=== PATIENT | female | born 1955 | race Two or more races ===

== ENCOUNTER 2025-05-13 14:01 | Inpatient (IN) | payer MEDICARE, MEDICAID ==
[~2025-05-13] VITALS: Ht 152.4 cm; Wt 63.3 kg
[2025-05-13] MEDS: AMIODARONE BOLUS KIT 100 ML IV ONE (14:18)
--- NOTE | 2025-05-13 14:34 | ED.PDOC ---
HPI Comments This is a 70 year-old female, with a Hx of COPD and HTN, who presents to the ED via EMS with a chief complaint of chest tightness as of today. Per EMS, patient was at a local advanced cardiology clinic today where possible SVTs were observed during a routine check-up. Per EMS, patient was given 18mg Adenosine en route. Patients HR sustaining in the 140s. Patient has no further complaints at this time and otherwise denies chest pain, dizziness, headache, palpitations, N/V/D, or LOC. Chief Complaint: Palpitations Time Seen by MD: 14:19 Reviewed Notes: Nurses Notes, Medications, Allergies Allergies: Coded Allergies: NO KNOWN ALLERGIES (Unverified , 05/13/25) Information Source: Patient Mode of Arrival: EMS Severity: Moderate Timing: Hours Duration: Since onset Prehospital treatment: Pain Meds (18mg Adenosine ) Quality: Tightness Onset: At Rest, With Light Exertion, With Heavy Exertion Associated Signs and Symptoms: Other (chest tightness ) Past Medical History PAST MEDICAL HISTORY: COPD, DM, High Lipids, HTN Surgical History: Denies all surgeries SCALPER OPERATOR History: No Pertinent SCALPER OPERATOR History Family History Family History: Reviewed,noncontributory to illness, No family hx of Cancer, No family hx of DM, No family hx of Heart ava, No family hx of HTN, No family hx ofKidney ava, No family hx of Liver ava, No family hx of Lung ava, No family hx of Stroke Social History Smoker: Non-Smoker Alcohol: Denies ETOH Use Drugs: Denies Drug Use Lives In: Home Constitutional: denies: chills, diaphoresis, fatigue, fever, malaise, sweats, weakness, others EENTM: denies: blurred vision, double vision, ear bleeding, ear discharge, ear drainage, ear pain, ear ringing, eye pain, eye redness, hearing loss, mouth pain, mouth swelling, nasal discharge, nose bleeding, nose congestion, nose pain, photophobia, tearing, throat pain, throat swelling, voice changes, others Respiratory: denies: cough, hemoptysis, orthopnea, SOB at rest, shortness of breath, SOB with excertion, stridor, wheezing, others Cardiovascular: reports: others (chest tightness ); denies: chest pain, dizzy spells, diaphoresis, Dyspnea on exertion, edema, irregular heart beat, left arm pain, lightheadedness, palpitations, PND, syncope Gastrointestinal: denies: abdomen distended, abdominal pain, blood streaked bowels, constipated, diarrhea, dysphagia, difficulty swallowing, hematemesis, melena, nausea, poor appetite, poor fluid intake, rectal bleeding, rectal pain, vomiting, others Genitourinary: denies: abnormal vagina bleeding, burning, dyspareunia, dysuria, flank pain, frequency, hematuria, incontinence, pain, , vagina discharge, urgency, others Neurological: denies: dizziness, fainting, headache, left sided numbness, left sided weakness, numbness, paresthesia, pre-existing deficit, right sided numbness, right sided weakness, seizure, speech problems, tingling, tremors, weakness, others Musculoskeletal: denies: back pain, gout, joint pain, joint swelling, muscle pain, muscle stiffness, neck pain, others Integumetry: denies: bruises, change in color, change in hair/nails, dryness, laceration, lesions, lumps, rash, wounds, others Allergic/Immunocompromised: denies: Difficulty Healing, Frequent Infections, Hives, Itching, others Hematologic/Lymphatic: denies: anemia, blood clots, easy bleeding, easy bruising, swollen glands, others Endocrine: denies: excessive hunger, excessive sweating, excessive thirst, excessive urination, flushing, intolerance to cold, intolerance to heat, unexplained weight gain, unexplained weight loss, others Psychiatric: denies: anxiety, bipolar disorder, depression, hopeless, panic disorder, schizophrenia, sleepless, suicidal, others All Other Systems: Reviewed and Negative Physical Exam General Appearance: Moderate Distress HEENT: Normal ENT Inspection, Pharynx Normal, TMs Normal Neck: Full Range of Motion, Non-Tender, Normal, Normal Inspection Respiratory: Chest Non-Tender, Lungs Clear, No Accessory Muscle Use, No Respiratory Distress, Normal Breath Sounds Cardiovascular: No Edema, No JVD, No Murmur, No Gallop, Normal Peripheral Pulses, Tachycardia Breast Exam: Deferred Gastrointestinal: No Organomegaly, Non Tender, No Pulsatile Mass, Normal Bowel Sounds, Soft Genitalia: Deferred Pelvic: Deferred Rectal: Deferred Extremities: No calf tenderness, Other (Bilateral lower extremity rash chronic) Musculoskeletal : Apperance: Normal Neurologic: Alert, No Motor Deficits, No Sensory Deficits Cerebellar Function: NOT DONE Reflexes: NOT DONE Skin: Normal Color, Rash (Bilateral lower extremity) Lymphatic: No Adenopathy EKG EKG : Pulse Rate (adult): 148 [place]: Normal Block: None Hypertrophy: None ST: Normal Was a procedure done? Was a procedure done?: No CP Differential Dx Differential Diagnosis: A-fib, A-Flutter, Angina, Anxiety / Panic Attack, Atrial Dysrhythmia, Electrolyte Disorder, PSVT, Sinus Tachycardia Differential Diagnosis: CHF, HTN Essential Differential Diagnosis: Angina, Chest Wall Pain X-Ray, Labs, Meds, VS Vital Signs Date Time Temp Pulse Resp B/P (MAP) Pulse Ox O2 Delivery O2 Flow Rate FiO2 05/13/25 17:04 89 05/13/25 16:00 93 17 117/55 (75) 94 05/13/25 15:10 139 05/13/25 14:46 94 Nasal Cannula* 2 28 05/13/25 14:42 148 05/13/25 14:37 134 18 94 Nasal Cannula* 2 28 05/13/25 14:23 97.7 128 17 110/50 (70) 94 97.7 05/13/25 14:12 98.6 148 24 142/74 99 98.6 05/13/25 14:12 148 Lab Test 05/13/25 15:24 05/13/25 14:28 05/13/25 14:22 Range/Units Troponin I High Sensitivity 9 5 </=34 ng/L POC Glucose 142 H 70-106 mg/dl Current Medications Medications (Trade) Dose Ordered Sig/Ramirez Route Start Time Stop Time Status Last Admin Amiodarone HCl 100 ml @ 600 mls/hr ONCE ONCE IV 05/13/25 14:15 05/13/25 14:24 DC 05/13/25 14:18 Amiodarone HCL/ Dextrose 200 ml @ 33.33 mls/ hr ONCE ONCE IV 05/13/25 14:30 05/13/25 20:30 05/13/25 14:36 Patient alert. Came in because of rapid heart rate. EKG reviewed does show supraventricular tachycardia. Placed on oxygen. Cardiac marker within normal limits. Placed on amiodarone. Explained to the patient. Continue monitoring. Images Reviewed?: Images reviewed and evaluated by me Time of 1ST Reevaluation: 15:08 Reevaluation 1ST: Unchanged Patient Education/Counseling: Diagnosis, Treatment Family Education/Counseling: No Family Present SEPSIS Sepsis Screen Date sepsis recognized/suspect: May 13, 2025 Time Sepsis recognized/suspect: 1416 Recent Procedure: No On Antibiotic Therapy: No Respiratory Rate >20: No Heart Rate >90: Yes Temp<36 C (96.8 F) or >38.3 C: No SBP <90 or MAP <65 mmHG: No New Acute Mental Status Change: No Is the patient on CPAP, BIPAP,: No Physician Orders Electrocardigram (05/13/25 14:03) Electrocardigram (05/13/25 15:03) Electrocardigram (05/13/25 17:03) Troponin-I Hs (05/13/25 17:03) Amiodarone 360mg/200ml Premix (Nexterone (05/13/25 14:30) Amiodarone 360mg/200ml Premix (Nexterone (05/13/25 20:30) Vital Signs Date Time Temp Pulse Resp B/P (MAP) Pulse Ox O2 Delivery O2 Flow Rate FiO2 05/13/25 17:04 89 05/13/25 16:00 93 17 117/55 (75) 94 05/13/25 15:10 139 05/13/25 14:46 94 Nasal Cannula* 2 28 05/13/25 14:42 148 05/13/25 14:37 134 18 94 Nasal Cannula* 2 28 05/13/25 14:23 97.7 128 17 110/50 (70) 94 97.7 05/13/25 14:12 98.6 148 24 142/74 99 98.6 05/13/25 14:12 148 Medications Medications Dose Ordered Sig/Ramirez Route Start Time Stop Time Status Last Admin Dose Admin Amiodarone HCl 100 ml @ 600 mls/hr ONCE ONCE IV 05/13/25 14:15 05/13/25 14:24 DC 05/13/25 14:18 Amiodarone HCL/ Dextrose 200 ml @ 33.33 mls/ hr ONCE ONCE IV 05/13/25 14:30 05/13/25 20:30 05/13/25 14:36 Departure 1 Departure Time of Disposition: 17:34 Impression: Primary Impression: Supraventricular tachycardia Disposition: ADMITTED INPATIENT Admit to: Med Surg Condition: Guarded Critical Care Note Critical Care Time?: Yes (90 min-critical care time only) Stability Stability form required: No Heart Score Heart Score: Heart Score Response (Comments) Value History Moderate Suspicious 1 EKG Normal 0 Age >65 2 Risk Factors 1 or 2 risk factors 1 Troponin Normal limit 0 Total 4 I personally scribed for YARIEL LYLE MD ([email or web address]) on 05/13/25 at 14:34. Electronically submitted by Carina Moser ([employer]). I personally scribed for YARIEL LYLE MD ([email or web address]) on 05/13/25 at 14:42. Electronically submitted by Carina Moser ([employer]). I personally scribed for YARIEL LYLE MD ([email or web address]) on 05/13/25 at 14:43. Electronically submitted by Carina Moser ([employer]). YARIEL LYLE MD May 13, 2025 14:34
[2025-05-13] MEDS: AMIODARONE 360mg/200mL PREMIX 200 ML IV ONE (14:36)
[2025-05-13 14:37] VITALS: PULSE 134; RESP 18; O2SAT 94
[2025-05-13 18:10] LABS: Urine Protein, UAD Negative (Negative)
[2025-05-13 18:11] LABS: Chloride 101 mmol/L (98-107); Potassium 4.1 mmol/L (3.5-5.1); Sodium 137 mmol/L (136-145)
[2025-05-13 18:12] LABS: Anion Gap 12 (5-15); Calcium 9.1 mg/dL (8.7-10.4); Carbon Dioxide 24 mmol/L (20-31)
[2025-05-13 18:13] LABS: Hematocrit 35.1 % (36.0-46.0); Hemoglobin 11.6 g/dL (12.2-16.2); Mean Corpuscular Hemoglobin 29.5 pg (28.0-32.0); Mean Corpuscular Volume 89.5 fL (80.0-100.0); Nucleated Red Blood Cells % 0.0 %
[2025-05-13 18:17] LABS: BUN/Creatinine Ratio 11.2 (10.0-20.0); Blood Urea Nitrogen 10 mg/dL (9-23); Glucose 107 mg/dL (74-106)
--- NOTE | 2025-05-13 18:49 | DVH ---
CHEST RADIOGRAPH Indication: sob Technique: XY CHEST PORTABLE COMPARISON: None FINDINGS: The cardiac silhouette is enlarged. The lungs demonstrate bilateral patchy airspace opacities, which are most pronounced in the left lower lobe. The pulmonary vasculature is prominent. Small left pleura l effusion. There is no pneumothorax. Aortic atherosclerotic disease. IMPRESSION: As above
[2025-05-13] MEDS ORDERED: DEXTROSE (50%) 50ML SYRG IV PRN (19:00)
[2025-05-13] MEDS ORDERED: MORPHINE SULFATE INJ 2 MG/ml SYRG IV PRN (19:00)
[2025-05-13] MEDS ORDERED: NITROGLYCERIN 0.4 MG SL TAB SL PRN (19:00)
[2025-05-13] MEDS ORDERED: ONDANSETRON HCL 4 MG/2 ML VIAL IV PRN (19:00)
[2025-05-13] MEDS ORDERED: ACETAMINOPHEN 325 MG TAB PO PRN (19:00)
[2025-05-13] MEDS: ALBUTEROL SULF 2.5 MG/0.5ML(0.5%) NEB SOLN ONE (19:59)
[2025-05-13] MEDS: AMIODARONE 360mg/200mL PREMIX 200 ML IV SCH (20:30)
[2025-05-13] MEDS: METOPROLOL TARTRATE 50 MG TAB PO SCH (22:00)
[2025-05-13] MEDS: ATORVASTATIN 20 MG TAB PO SCH (22:00)
[2025-05-13] MEDS: ACCU-CHEK COMFORT CURVE STRIP VI SCH (22:00)
[2025-05-13] MEDS: InsuLIN REG 1unit/0.01ml Soln (100units/ml) SC SCH (22:00)
[2025-05-13 22:51] VITALS: BP 133/59; RESP 20
[2025-05-13 23:20] VITALS: BP 150/50; PULSE 74; RESP 19; TEMP 97.7; O2SAT 90; O2SAT 92
[2025-05-14] VITALS (13 sets, daily range): BP systolic 112–161; BP diastolic 49–70; PULSE 67–86; RESP 14–19; TEMP 97.1–98.4; O2SAT 90–98
--- NOTE | 2025-05-14 00:12 | DVHHP2 ---
History of Present Illness Reason for Visit: Chest pain History of Present Illness 70-year-old female presents for evaluation of chest pain. Patient was at her doctor's office she developed chest tightness. An EKG was performed his showed SVT. EMS was called. In route patient was given adenosine and subsequently started on amiodarone on arrival to the emergency department. She reports mild shortness for breath. No dizziness. No other acute complaints reported. Past Medical History Hypertension, dyslipidemia, diabetes mellitus, COPD Past Surgical History Denies Family History Noncontributory Smoke: No ALCOHOL: none Drugs: None Lives: with Family Review of Systems Review of Systems Review of systems are currently negative otherwise addressed in HPI. Allergies: Coded Allergies: NO KNOWN ALLERGIES (Unverified , 05/13/25) Medications Current Medications Medications Dose Ordered Sig/Ramirez Route Start Time Stop Time Status Last Admin Dose Admin Amiodarone HCL/ Dextrose 200 ml @ 16.66 mls/ hr Q12H IV 05/13/25 20:30 05/13/25 20:30 16.66 MLS/HR Clopidogrel Bisulfate 75 mg DAILY PO 05/14/25 10:00 Levothyroxine Sodium 100 mcg QAM@0600 PO 05/14/25 06:00 Amlodipine Besylate 2.5 mg DAILY PO 05/14/25 10:00 Atorvastatin Calcium 20 mg HS PO 05/13/25 22:00 Olanzapine 5 mg DAILY PO 05/14/25 10:00 Albuterol 2.5 mg Q6HPRN PRN NEB 05/13/25 19:00 Metoprolol Tartrate 50 mg BID PO 05/13/25 22:00 Diagnostic Test (Pha) 1 strip ACHS 05/13/25 22:00 Insulin Human Regular ACHS SC 05/13/25 22:00 Dextrose 50 ml UD PRN IV 05/13/25 19:00 Ondansetron HCl 4 mg Q4HP PRN IV 05/13/25 19:00 Enoxaparin Sodium 40 mg DAILY SC 05/14/25 10:00 Acetaminophen 650 mg Q6HP PRN PO 05/13/25 19:00 Nitroglycerin 0.4 mg Q5MINP PRN SL 05/13/25 19:00 Morphine Sulfate 2 mg Q30M PRN IV 05/13/25 19:00 Exam Vital Signs Vital Signs Date Time Temp Pulse Resp B/P (MAP) Pulse Ox O2 Delivery O2 Flow Rate FiO2 05/13/25 22:51 20 133/59 2.0 05/13/25 18:00 85 94 05/13/25 14:46 Nasal Cannula* 28 05/13/25 14:23 97.7 97.7 Exam Gen: 70-year-old female in mild distress. Skin: Warm, dry, normal color and texture, no rash. HEENT: Normocephalic atraumatic, mucous membranes moist and pink. Neck: Cervical and supraclavicular nodes normal without enlargement, trachea is midline, thyroid gland is normal without masses. Pulmonary: Clear to auscultation and percussion bilaterally. Cardiac: Tachycardia Abdomen: Soft, nontender, nondistended, bowel sounds present all 4 quadrants, no guarding, no rigidity, no organomegaly. Extremities: No cyanosis, clubbing, no edema Neuro: Cranial nerves II through XII grossly intact, normal affect and speech, no focal motor deficits. Labs/Xrays ORDERING PHYSICIAN: YARIEL LYLE MD PROCEDURE(s): CXRP - CHEST PORTABLE REASON: sob ORDER NUMBER(s): [id number], ACCESSION NUMBER(s): [id number] CHEST RADIOGRAPH Indication: sob Technique: XY CHEST PORTABLE COMPARISON: None FINDINGS: The cardiac silhouette is enlarged. The lungs demonstrate bilateral patchy airspace opacities, which are most pronounced in the left lower lobe. The pulmonary vasculature is prominent. Small left pleural effusion. There is no pneumothorax. Aortic atherosclerotic disease. IMPRESSION: As above Labs Test 05/13/25 17:48 05/13/25 17:45 05/13/25 14:28 05/13/25 14:22 Range/Units Troponin I High Sensitivity 17 </=34 ng/L Urine Color Colorless Yellow Urine Clarity Clear Clear Urine pH 6.5 5.0-9.0 Urine Specific [place] 1.009 1.001-1.035 Urine Protein Negative Negative Urine Ketones Negative Negative Urine Blood Negative Negative /uL Urine Nitrite Negative Negative Urine Bilirubin Negative Negative Urine Urobilinogen Normal Negative mg/dL Urine Leukocyte Esterase Negative Negative /uL Urine RBC <1 0 - 4 /hpf Urine Microscopic WBC 1 0-5 /HPF Urine Squamous Epithelial Cells Few <5 /hpf Urine Bacteria None seen None Seen /hpf Urine Glucose Normal Normal mg/dL POC Glucose 142 H 70-106 mg/dl White Blood Count 7.9 4.4-10.8 10^3/uL Red Blood Count 3.93 L 4.0-5.20 10^6/uL Hemoglobin 11.6 L 12.2-16.2 g/dL Hematocrit 35.1 L 36.0-46.0 % Mean Corpuscular Volume 89.5 80.0-100.0 fL Mean Corpuscular Hemoglobin 29.5 28.0-32.0 pg Mean Corpuscular Hemoglobin Concent 33.0 32.0-36.0 g/dL Red Cell Distribution Width 15.0 H 11.8-14.3 % Platelet Count 193 140-450 10^3/uL Mean Platelet Volume 7.7 6.9-10.8 fL Neutrophils (%) (Auto) 67.3 37.0-80.0 % Lymphocytes (%) (Auto) 18.8 10.0-50.0 % Monocytes (%) (Auto) 10.3 0.0-12.0 % Eosinophils (%) (Auto) 3.2 0.0-7.0 % Basophils (%) (Auto) 0.4 0.0-2.0 % Neutrophils # (Auto) 5.3 1.6-8.6 10 ^3/uL Lymphocytes # (Auto) 1.5 0.4-5.4 10 ^3/uL Monocytes # (Auto) 0.8 0-1.3 10 ^3/uL Eosinophils # (Auto) 0.3 0-0.8 10 ^3/uL Basophils # (Auto) 0 0-0.2 10 ^3/uL Nucleated Red Blood Cells 0.0 % Sodium Level 137 136-145 mmol/L Potassium Level 4.1 3.5-5.1 mmol/L Chloride Level 101 98-107 mmol/L Carbon Dioxide Level 24 20-31 mmol/L Anion Gap 12 5-15 Blood Urea Nitrogen 10 9-23 mg/dL Creatinine 0.89 0.550-1.02 mg/dL Glomerular Filtration Rate Calc 69 >90 mL/min BUN/Creatinine Ratio 11.2 10.0-20.0 Serum Glucose 107 H 74-106 mg/dL Calcium Level 9.1 8.7-10.4 mg/dL SEPSIS Sepsis Screen Date sepsis recognized/suspect: May 13, 2025 Time Sepsis recognized/suspect: 1445 Recent Procedure: No On Antibiotic Therapy: No Respiratory Rate >20: No Heart Rate >90: No Temp<36 C (96.8 F) or >38.3 C: No SBP <90 or MAP <65 mmHG: No New Acute Mental Status Change: No Is the patient on CPAP, BIPAP,: No Physician Orders Chest Portable (05/13/25 17:35) Clopidogrel Bisulfate (Plavix) (05/14/25 10:00) Levothyroxine Tablet (Synthroid Tablet) (05/14/25 06:00) Amlodipine Tablet (Norvasc Tablet) (05/14/25 10:00) Atorvastatin (Lipitor) (05/13/25 22:00) Olanzapine Tablet (Zyprexa Tablet) (05/14/25 10:00) Albuterol Medneb (Ventolin Medneb) (05/13/25 19:00) Metoprolol Tartrate Tablet (Lopressor Ta (05/13/25 22:00) Basic Metabolic Panel (05/14/25 04:00) Glucose Blood (Accu-Chek Comfort Curve T (05/13/25 22:00) Insulin R (Human) (Insulin R) (05/13/25 22:00) Dextrose 50% Syringe (05/13/25 19:00) Admit (05/13/25 18:57) Ondansetron Hcl (Zofran) (05/13/25 19:00) Enoxaparin Sodium (Lovenox) (05/14/25 10:00) Cardiac Diet-2gna,Lofat,Lochol (05/14/25 Breakfast) Echo 2d Mode Cardiac Dop (05/13/25 18:57) Condition: Fair (05/13/25 18:57) Acetaminophen Tablet (Tylenol Tablet) (05/13/25 19:00) Bedrest With Bathroom Privileg (05/13/25 18:57) Nitroglycerin Sublingual (Ntrostat Subli (05/13/25 19:00) Morphine Sulfate Injection (05/13/25 19:00) Stat Ekg For Chest Pain (05/13/25 18:57) Notify Md Of Changes From Base (05/13/25 18:57) Director Of Grants For 24 Hours (05/13/25 18:57) Emergency Dysrhythmia Protocol (05/13/25 18:57) Rhythm Strips Once Every Shift (05/13/25 18:57) Oxygen By Nasal Cannula (05/13/25 18:57) Vital Signs Date Time Temp Pulse Resp B/P (MAP) Pulse Ox O2 Delivery O2 Flow Rate FiO2 05/13/25 22:51 20 133/59 2.0 05/13/25 18:00 85 17 133/59 (83) 94 05/13/25 17:04 89 05/13/25 17:00 87 17 120/56 (77) 94 Laboratory Tests Test 05/13/25 14:22 White Blood Count 7.9 10^3/uL (4.4-10.8) Medications Medications Dose Ordered Sig/Ramirez Route Start Time Stop Time Status Last Admin Dose Admin Albuterol 2.5 mg STK-MED ONCE .ROUTE 05/13/25 19:47 05/13/25 19:43 DC 05/13/25 19:59 2.5 MG Amiodarone HCl 100 ml @ 600 mls/hr ONCE ONCE IV 05/13/25 14:15 05/13/25 14:24 DC 05/13/25 14:18 600 MLS/HR Amiodarone HCL/ Dextrose 200 ml @ 16.66 mls/ hr Q12H IV 05/13/25 20:30 05/13/25 20:30 16.66 MLS/HR Amiodarone HCL/ Dextrose 200 ml @ 33.33 mls/ hr ONCE ONCE IV 05/13/25 14:30 05/13/25 20:30 DC 05/13/25 14:36 33.33 MLS/HR Assessment/Plan Assessment/Plan Assessment Supraventricular tachycardia Diabetes mellitus COPD Hypertension Plan Admit the patient to telemetry to the hospitalist Cardiology consultation Resume home medications Echocardiogram pending Continue treatment per orders. Plan discussed with: Patient My Orders Orders - DEON LEARY Procedure Category Date Status Time Clopidogrel Bisulfate PHA 05/14/25 In Process (Plavix) 10:00 Levothyroxine Tablet PHA 05/14/25 In Process (Synthroid Tablet) 06:00 Amlodipine Tablet PHA 05/14/25 In Process (Norvasc Tablet) 10:00 Atorvastatin (Lipitor) PHA 05/13/25 In Process 22:00 Olanzapine Tablet PHA 05/14/25 In Process (Zyprexa Tablet) 10:00 Albuterol Medneb PHA 05/13/25 In Process (Ventolin Medneb) 19:00 Metoprolol Tartrate PHA 05/13/25 In Process Tablet (Lopressor Ta 22:00 Basic Metabolic Panel LAB 05/14/25 Logged 04:00 Glucose Blood PHA 05/13/25 In Process (Accu-Chek Comfort 22:00 Insulin R (Human) PHA 05/13/25 In Process (Insulin R) 22:00 Dextrose 50% Syringe PHA 05/13/25 In Process 19:00 Admit ADMIT 05/13/25 Transmitted 18:57 Ondansetron Hcl PHA 05/13/25 In Process (Zofran) 19:00 Enoxaparin Sodium PHA 05/14/25 In Process (Lovenox) 10:00 Cardiac DIET 05/14/25 Transmitted Diet-2gna,Lofat,Lochol Breakfast Echo 2d Mode Cardiac US 05/13/25 Logged DOP 18:57 Condition: Fair DAVION 05/13/25 In Process 18:57 Acetaminophen Tablet PHA 05/13/25 In Process (Tylenol Tablet) 19:00 Bedrest With Bathroom DAVION 05/13/25 In Process Privileg 18:57 Nitroglycerin PHA 05/13/25 In Process Sublingual (Ntrostat 19:00 Morphine Sulfate PHA 05/13/25 In Process Injection 19:00 Stat Ekg For Chest DAVION 05/13/25 In Process Pain 18:57 Notify Of Changes DAVION 05/13/25 In Process From Base 18:57 Director Of Grants For DAVION 05/13/25 In Process 24 Hours 18:57 Emergency Dysrhythmia DAVION 05/13/25 In Process Protocol 18:57 Rhythm Strips Once DAVION 05/13/25 In Process Every Shift 18:57 Oxygen By Nasal RT 05/13/25 Transmitted Cannula 18:57 Date of Service: May 13, 2025 Billing Provider: DEON LEARY Common Visit Codes: [id number] INP/OBS CARE (HIGH) DEON LEARY May 14, 2025 00:12
[2025-05-14] MEDS: LEVOTHYROXINE SODIUM 100 MCG TAB PO SCH (05:31)
[2025-05-14 07:18] LABS: Anion Gap 8 (5-15); Carbon Dioxide 30 mmol/L (20-31); Chloride 101 mmol/L (98-107); Potassium 5.0 mmol/L (3.5-5.1); Sodium 139 mmol/L (136-145)
[2025-05-14 07:19] LABS: Calcium 9.2 mg/dL (8.7-10.4)
[2025-05-14 07:24] LABS: BUN/Creatinine Ratio 10.7 (10.0-20.0); Triglycerides 63 mg/dL (< 150)
[2025-05-14 07:25] LABS: Blood Urea Nitrogen 9 mg/dL (9-23); Glucose 71 mg/dL (74-106)
[2025-05-14 07:26] LABS: Cholesterol 127 mg/dL (< 200); HDL Cholesterol 57 mg/dL (40-59)
[2025-05-14] MEDS: CLOPIDOGREL BISULFATE 75 MG TAB PO SCH (08:15)
[2025-05-14] MEDS: OLANZapine 5 MG TAB PO SCH (08:15)
[2025-05-14] MEDS: ENOXAPARIN SOD 40 MG/0.4 ML SYRINGE SC SCH (08:18)
[2025-05-14] MEDS ORDERED: BECL80AE11 IN (09:29)
[2025-05-14] MEDS ORDERED: OLAN1TAB7 PO (09:29)
[2025-05-14] MEDS ORDERED: ERGO400T PO (09:29)
[2025-05-14] MEDS ORDERED: FLUO-125 PO (09:29)
[2025-05-14] MEDS ORDERED: CLOP75TA70 PO (09:29)
[2025-05-14] MEDS ORDERED: CITA10TA5 PO (09:29)
[2025-05-14] MEDS ORDERED: HYDR200T36 PO (09:29)
[2025-05-14] MEDS ORDERED: AMLO1TAB22 PO (09:29)
[2025-05-14] MEDS ORDERED: FOLI-119 PO (09:29)
[2025-05-14] MEDS ORDERED: METO-289 PO (09:29)
[2025-05-14] MEDS ORDERED: GABA-1250 PO (09:29)
[2025-05-14] MEDS ORDERED: ATOR20TA50 PO (09:29)
[2025-05-14] MEDS: ALBUTEROL SULF 2.5 MG/0.5ML(0.5%) NEB SOLN NEB PRN (12:30)
[2025-05-14] MEDS ORDERED: ALBUTEROL SULF 2.5 MG/0.5ML(0.5%) NEB SOLN NEB PRN (17:15)
--- NOTE | 2025-05-14 17:16 | DVHPN2 ---
Subjective CHEST TIGHTNESS Reviewed: Care Plan, H&P, Labs, Medications, Previous Orders, Radiology Changes from previous H/P or p: No Changes Objective Vitals Vital Signs Date Time Temp Pulse Resp B/P (MAP) Pulse Ox O2 Delivery O2 Flow Rate FiO2 05/14/25 16:51 97.9 71 16 138/70 (92) 98 97.9 05/14/25 12:30 Room Air* 0 21 Intake/Output Intake and Output 05/14/25 07:00 Intake Total 833.27 ml Output Total 500 ml Balance 333.27 ml Intake Oral 450 ml IV Total 383.27 ml Output Urine Total 500 ml # Voids 2 General Appearance: Alert, Oriented X3, Cooperative, No acute distress HEENT: Atraumatic Lungs: Other (DECREASED AIR RNTRY. WHEEZES AND CRACKLES B LUNGS) Cardiovascular: Regular rate Abdomen: Normal bowel sounds, Soft Extremities: Other (BLE REDNESS, WARMTH, SCALY SKIN) Medications Current Medications Medications Dose Ordered Sig/Ramirez Route Start Time Stop Time Status Last Admin Dose Admin Amiodarone HCL/ Dextrose 200 ml @ 16.66 mls/ hr Q12H IV 05/13/25 20:30 05/14/25 08:16 16.66 MLS/HR Clopidogrel Bisulfate 75 mg DAILY PO 05/14/25 10:00 05/14/25 08:15 75 MG Amlodipine Besylate 2.5 mg DAILY PO 05/14/25 10:00 05/14/25 08:15 2.5 MG Atorvastatin Calcium 20 mg HS PO 05/13/25 22:00 Olanzapine 5 mg DAILY PO 05/14/25 10:00 05/14/25 08:15 5 MG Albuterol 2.5 mg Q6HPRN PRN NEB 05/13/25 19:00 05/14/25 12:30 2.5 MG Metoprolol Tartrate 50 mg BID PO 05/13/25 22:00 05/14/25 08:15 50 MG Diagnostic Test (Pha) 1 strip ACHS 05/13/25 22:00 05/14/25 11:30 1 STRIP Insulin Human Regular ACHS SC 05/13/25 22:00 Dextrose 50 ml UD PRN IV 05/13/25 19:00 Ondansetron HCl 4 mg Q4HP PRN IV 05/13/25 19:00 Enoxaparin Sodium 40 mg DAILY SC 05/14/25 10:00 05/14/25 08:18 40 MG Acetaminophen 650 mg Q6HP PRN PO 05/13/25 19:00 Nitroglycerin 0.4 mg Q5MINP PRN SL 05/13/25 19:00 Morphine Sulfate 2 mg Q30M PRN IV 05/13/25 19:00 Levofloxacin/ Dextrose 100 ml @ 100 mls/hr DAILY IV 05/15/25 10:00 UNV Albuterol 2.5 mg Q6HR NEB 05/14/25 18:00 UNV Albuterol 2.5 mg Q3HPRN PRN NEB 05/14/25 17:15 UNV Ipratropium [place] 0.5 mg Q6HR NEB 05/14/25 18:00 UNV Methylprednisolone Sodium Succinate 40 mg Q12H IV 05/14/25 17:15 UNV Levothyroxine Sodium 75 mcg QAM@0600 PO 05/17/25 06:00 UNV Laboratory Results Laboratory Tests 05/13/25 14:22 05/14/25 05:59 Chemistry Test 05/14/25 05:59 Calcium Level 9.2 mg/dL (8.7-10.4) Coagulation Test 05/14/25 14:48 D-Dimer, Quantitative 1.78 mg/L FEU (0.0-0.49) H Lipid panel Test 05/14/25 05:59 Cholesterol Level 127 mg/dL (< 200) HDL Cholesterol 57 mg/dL (40-59) Triglycerides Level 63 mg/dL (< 150) HgA1c, TSH Test 05/14/25 05:59 05/14/25 14:48 Thyroid Stimulating Hormone (TSH) 0.52 uIU/mL (0.55-4.78) L Hemoglobin A1c Pending Urinalysis Test 05/13/25 17:45 Urine Color Colorless (Yellow) Urine Clarity Clear (Clear) Urine pH 6.5 (5.0-9.0) Urine Specific [place] 1.009 (1.001-1.035) Urine Protein Negative (Negative) Urine Ketones Negative (Negative) Urine Blood Negative /uL (Negative) Urine Nitrite Negative (Negative) Urine Bilirubin Negative (Negative) Urine Urobilinogen Normal mg/dL (Negative) Urine Leukocyte Esterase Negative /uL (Negative) Urine RBC <1 /hpf (0 - 4) Urine Microscopic WBC 1 /HPF (0-5) Urine Squamous Epithelial Cells Few /hpf (<5) Urine Bacteria None seen /hpf (None Seen) Urine Glucose Normal mg/dL (Normal) Assessment/Plan Assessment/Plan Chest pain and tightness COPD exacerbation with possible pneumonia SVT Diabetes Hypertension Bilateral lower extremity cellulitis and dermatitis Plan: Solu-Medrol. IV antibiotic. D-dimer. Further plan per orders Plan discussed with: Patient My Orders Orders - LUIGI COFFMAN MD Procedure Category Date Status Time Free T3 LAB 05/14/25 In Process 14:06 Free T4 (Free LAB 05/14/25 In Process Thyroxine) 14:06 * Cardiology Consult CONS 05/14/25 Transmitted 14:17 Hemoglobin A1c LAB 05/14/25 In Process 17:[address] 05/14/25 Logged Contrast 17:09 Levofloxacin 500mg PHA 05/15/25 Logged (Levaquin 500mg/ 100m 10:00 Albuterol Medneb PHA 05/14/25 Logged (Ventolin Medneb) 18:00 Albuterol Medneb PHA 05/14/25 Logged (Ventolin Medneb) 17:15 Ipratropium Medneb PHA 05/14/25 Logged (Atrovent Medneb) 18:00 Methylprednisolone PHA 05/14/25 Logged Sod Succ (Solu Medrol 17:15 Respiratory Culture JESS 05/14/25 Uncollected W/ Gs 17:10 Document Home Meds ED NURSING 05/14/25 Transmitted Get List Of Home ORDERS 05/14/25 Transmitted Medications 17:10 Updated And Reviewed DAVION 05/14/25 In Process Preferred 17:10 Levothyroxine Tablet PHA 05/17/25 Logged (Synthroid Tablet) 06:00 Levofloxacin 500mg PHA 05/14/25 Logged (Levaquin 500mg/ 100m 17:15 Clindamycin Ivpb PHA 05/14/25 Transmitted Cleocin 22:00 Date of Service: May 14, 2025 Billing Provider: LUIGI COFFMAN MD Common Visit Codes: [id number] INP/OBS CARE(HIGH) LUIGI COFFMAN MD May 14, 2025 17:16
[2025-05-14] MEDS: IOHEXOL 350 MG/ML 100ML IJ ONE (18:20)
[2025-05-14] MEDS: IPRATROPIUM BROM 0.5 MG/2.5ML INH SOL NEB SCH (18:34)
[2025-05-14] MEDS: ALBUTEROL SULF 2.5 MG/0.5ML(0.5%) NEB SOLN NEB SCH (18:34)
--- NOTE | 2025-05-14 19:21 | DVH ---
CTA Chest with intravenous contrast INDICATION: RO PE COMPARISON: None TECHNIQUE: Multidetector spiral CTA of the chest was performed of the chest with intravenous contrast . PULMONARY ANGIOGRAPHY PROTOCOL was utilized using a bolus-tracking technique centered on the main p ulmonary artery. Axial, coronal and sagittal multiplanar and MIP reformats were performed. Radiation dose : 1. Chest: CTDI volume is 17.22 mGy. Dose-length product is 571.35 mGy*cm Contrast: 1oo cc omnipaque 350 intravenously The dose indicators for CT are the volume computed tomography (CT) dose index (CTDIvol) and the dose length product (DLP), and are measured in units of mGy and mGy-cm, respectively. These indicators are not patient dose, but values generated from the CT scanner acquisition factors. The report includes radiation exposure data for exposures received during this examination. Findings: Pulmonary artery: No pulmonary embolism Lower neck: Normal thyroid. Lungs: No focal consolidation, pleural effusion or pneumothorax. Not diffuse bronchial wall thickenin g. Minimal passive [place] had changes bilateral. Heart/Vascular Structures: Normal heart size. No pericardial effusion. Coronary calcifications. Lymph Nodes: No adenopathy Pleura: No pleural effusion or significant pneumothorax. Bilateral calcified pleural plaques. Musculoskeletal: No acute osseous abnormality. Soft tissues: Normal. Upper abdomen: Limited portions of the upper abdomen are unremarkable. IMPRESSION: No pulmonary embolism or other acute abnormality. Mild airways disease.
[2025-05-14] MEDS: methylPREDNISolone SOD SUCC 40 MG/ML VL IV SCH (20:03)
[2025-05-14] MEDS: CLINDAMYCIN 600MG IV 50 ML IV SCH (22:22)
[2025-05-15] VITALS (18 sets, daily range): BP systolic 114–161; BP diastolic 47–70; PULSE 66–81; RESP 16–20; TEMP 97.3–98.5; O2SAT 95–100
--- NOTE | 2025-05-15 09:54 | DVHINCON2 ---
[facility] 05/15/25 0953: Date Seen: May 15, [address] 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 She was transferred to the ED via EMS. She describes having intermittent palpitation over the past six months. She denies chest pain, shortness of breath, dyspnea on exertion, presyncope, or syncope. In the ED, EKG demonstrated SVT. Patient was started on amiodarone infusion. Chest x-ray revealed a small pleural effusion. On assessment today, patient is in sinus rhythm with heart rate in 70s. The patient is alert and oriented but somehow poor historian. Past medical history of COPD, diabetes mellitus, hyperlipidemia, hypertension, Past Medical History As stated in HPI Past Surgical History Denies Family History: Hypertension G8 MOTHER Family History Reviewed, non-contributory to the management of this case. Social History The patient lives at home, denies smoking, alcohol or illicit drugs abuse. Allergies: Coded Allergies: NO KNOWN ALLERGIES (Unverified , 05/13/25) Home Meds Reported Medications Triamcinolone Acetonide (Topic (Triderm) 0.5 % Cre, 0.1 % EX BIDPRN for rash, C RE 05/15/25 Beclomethasone Dipropionate (Qvar Redihaler) 80 Mcg/Act Aer, 80 MCG IN, AER 05/14/25 Ergocalciferol (VITAMIN D2) 400 Unit Tab, 400 UNIT PO, TAB 05/14/25 Clopidogrel Bisulfate (CLOPIDOGREL) 75 Mg Tab, 75 MG PO DAILY for 30 Days, MG 05/14/25 Amlodipine Besylate (Amlodipine Besylate) 5 Mg Tab, 5 MG PO DAILY for 30 Days, MG 05/14/25 Fluoxetine Hcl (Fluoxetine Hcl) 20 Mg Cap, 20 MG PO DAILY for 30 Days, MG 05/14/25 Hydroxychloroquine Sulfate (Hydroxychloroquine Sulfat) 200 Mg Tab, 200 MG PO for 30 Days, MG 05/14/25 Atorvastatin Calcium (ATORVASTATIN CALCIUM) 20 Mg Tab, 20 MG PO DAILY, TAB 05/14/25 Folic Acid (Folic Acid) 1 Mg Tab, 1 MG PO DAILY for 30 Days, MG 05/14/25 Olanzapine (OLANZAPINE) 5 Mg Tab, 5 MG PO DAILY for 30 Days, MG 05/14/25 Citalopram Hydrobromide (Citalopram Hydrobromide) 10 Mg Tab, 5 MG PO DAILY for 30 Days, MG 05/14/25 Gabapentin (Gabapentin) 300 Mg Cap, 300 MG PO for 30 Days, MG 05/14/25 Metoprolol Succinate (Metoprolol Succinate Er) 50 Mg Tab, 50 MG PO DAILY for 30 Days, MG 05/14/25 Current Medications Current Medications Medications (Trade) Dose Ordered Sig/Ramirez Route PRN Reason Start Time Stop Time Status Last Admin Clopidogrel Bisulfate (Plavix) 75 mg DAILY PO 05/14/25 10:00 05/14/25 08:15 Amlodipine Besylate (Norvasc Tablet) 2.5 mg DAILY PO 05/14/25 10:00 05/14/25 08:15 Olanzapine (ZyPREXA Tablet) 5 mg DAILY PO 05/14/25 10:00 05/14/25 08:15 Enoxaparin Sodium (Lovenox) 40 mg DAILY SC 05/14/25 10:00 05/14/25 08:18 Levofloxacin/ Dextrose 100 ml @ 100 mls/hr DAILY IV 05/15/25 10:00 Albuterol (Ventolin Medneb) 2.5 mg Q6HR NEB 05/14/25 18:00 05/15/25 07:29 Albuterol (Ventolin Medneb) 2.5 mg Q3HPRN PRN NEB SHORTNESS OF BREATH 05/14/25 17:15 Ipratropium [place] (Atrovent Medneb) 0.5 mg Q6HR NEB 05/14/25 18:00 05/15/25 07:27 Methylprednisolone Sodium Succinate (Solu Medrol) 40 mg Q12H IV 05/14/25 17:15 05/15/25 06:12 Levothyroxine Sodium (Synthroid Tablet) 75 mcg QAM@0600 PO 05/17/25 06:00 Clindamycin Phosphate 50 ml @ 50 mls/hr Q8HR IV 05/14/25 22:00 05/15/25 08:34 DC 05/15/25 06:13 Clindamycin Phosphate 50 ml @ 50 mls/hr Q8HR IV 05/15/25 16:30 Review of Systems Constitutional: No symptom reported Ears, Nose, & Throat: No symptom reported Eyes: No symptom reported Neurological: No symptoms reported Pulmonary/Respiratory: No symptom reported Cardiovascular: Chest palpitations Gastrointestinal: No symptom reported Genitourinary: No symptom reported Musculoskeletal: No symptom reported Skin: No symptom reported Psychiatric: No symptom reported Endocrine: No symptom reported Hemotologic/Lymphatic: No symptom reported Vital Signs Vital Signs Date Time Temp Pulse Resp B/P (MAP) Pulse Ox O2 Delivery O2 Flow Rate FiO2 05/15/25 09:30 97.9 75 20 158/63 (94) 95 97.9 05/15/25 07:22 Nasal Cannula* 2 28 Physical Exam INITIAL VITAL SIGNS: Reviewed by me GENERAL: Alert and interactive. No acute distress. HEAD: Head is normocephalic and atraumatic. EYES: EOMI, PERRL. No scleral icterus. No conjunctival injection. ENT: Moist mucous membranes. NECK: Supple, No masses, Full range of motion. RESPIRATORY: No tachypnea. Clear breath sounds bilaterally. No wheezing, rales, rhonchi. CV: Regular rate and rhythm. No murmurs, no edema GI/: Active bowel sounds, soft, nondistended, nontender. No guarding. No rebound. No masses. No CVA tenderness. INTEGUMENTARY: Warm and dry. No obvious rashes. NEUROLOGIC: Alert and oriented. Face is symmetric. Speech is normal. Moves all extremities equally. Labs/Diagnostic Data Labs Test 05/15/25 06:23 05/14/25 14:48 05/14/25 05:59 05/13/25 17:48 Range/Units POC Glucose 142 H 70-106 mg/dl D-Dimer, Quantitative 1.78 H 0.0-0.49 mg/L FEU Hemoglobin A1c 5.1 <5.7 % A1C Sodium Level 139 136-145 mmol/L Potassium Level 5.0 3.5-5.1 mmol/L Chloride Level 101 98-107 mmol/L Carbon Dioxide Level 30 20-31 mmol/L Anion Gap 8 5-15 Blood Urea Nitrogen 9 9-23 mg/dL Creatinine 0.84 0.550-1.02 mg/dL Glomerular Filtration Rate Calc 74 >90 mL/min BUN/Creatinine Ratio 10.7 10.0-20.0 Serum Glucose 71 L 74-106 mg/dL Calcium Level 9.2 8.7-10.4 mg/dL Triglycerides Level 63 < 150 mg/dL Cholesterol Level 127 < 200 mg/dL LDL Cholesterol 57 < 100 mg/dL HDL Cholesterol 57 40-59 mg/dL Thyroid Stimulating Hormone (TSH) 0.52 L 0.55-4.78 uIU/mL Troponin I High Sensitivity 17 </=34 ng/L Test 05/13/25 17:45 05/13/25 14:22 Range/Units Urine Color Colorless Yellow Urine Clarity Clear Clear Urine pH 6.5 5.0-9.0 Urine Specific [place] 1.009 1.001-1.035 Urine Protein Negative Negative Urine Ketones Negative Negative Urine Blood Negative Negative /uL Urine Nitrite Negative Negative Urine Bilirubin Negative Negative Urine Urobilinogen Normal Negative mg/dL Urine Leukocyte Esterase Negative Negative /uL Urine RBC <1 0 - 4 /hpf Urine Microscopic WBC 1 0-5 /HPF Urine Squamous Epithelial Cells Few <5 /hpf Urine Bacteria None seen None Seen /hpf Urine Glucose Normal Normal mg/dL White Blood Count 7.9 4.4-10.8 10^3/uL Red Blood Count 3.93 L 4.0-5.20 10^6/uL Hemoglobin 11.6 L 12.2-16.2 g/dL Hematocrit 35.1 L 36.0-46.0 % Mean Corpuscular Volume 89.5 80.0-100.0 fL Mean Corpuscular Hemoglobin 29.5 28.0-32.0 pg Mean Corpuscular Hemoglobin Concent 33.0 32.0-36.0 g/dL Red Cell Distribution Width 15.0 H 11.8-14.3 % Platelet Count 193 140-450 10^3/uL Mean Platelet Volume 7.7 6.9-10.8 fL Neutrophils (%) (Auto) 67.3 37.0-80.0 % Lymphocytes (%) (Auto) 18.8 10.0-50.0 % Monocytes (%) (Auto) 10.3 0.0-12.0 % Eosinophils (%) (Auto) 3.2 0.0-7.0 % Basophils (%) (Auto) 0.4 0.0-2.0 % Neutrophils # (Auto) 5.3 1.6-8.6 10 ^3/uL Lymphocytes # (Auto) 1.5 0.4-5.4 10 ^3/uL Monocytes # (Auto) 0.8 0-1.3 10 ^3/uL Eosinophils # (Auto) 0.3 0-0.8 10 ^3/uL Basophils # (Auto) 0 0-0.2 10 ^3/uL Nucleated Red Blood Cells 0.0 % PROCEDURE(s): CXRP - CHEST PORTABLE REASON: sob ORDER NUMBER(s): [id number], ACCESSION NUMBER(s): [id number] CHEST RADIOGRAPH Indication: sob Technique: XY CHEST PORTABLE COMPARISON: None FINDINGS: The cardiac silhouette is enlarged. The lungs demonstrate bilateral patchy airspace opacities, which are most pronounced in the left lower lobe. The pulmonary vasculature is prominent. Small left pleural effusion. There is no pneumothorax. Aortic atherosclerotic disease. IMPRESSION: As above Assessment Supraventricular tachycardia, now in sinus rhythm Small pleural effusion Hyperlipidemia Hypertension Diabetes mellitus type 2 Plan/Recommendation (Dr. Duarte): * Continue with beta irvin metoprolol * Magnesium oxide 400 b.i.d. * Obtain transthoracic echocardiogram to evaluate cardiac function is structural heart disease * Continue with telemetry monitoring * Monitor electrolytes and replete as needed For unremarkable echocardiogram, cardiology will sign off. The patient is advised to follow-up with her edge cutting machine operator in outpatient setting for further evaluation. This medical document was created using an electronic medical record system with voice recognition software and computerized dictation system. Although this document has been carefully reviewed, there might still be some phonetic and typographical errors. Occasional wrong-word or ``sound-alike substitutions may have occurred due to the inherent limitations of voice recognition software. These areas are purely typographical due to imperfections of the software programs and do not reflect any compromise in the patient's medical care. Please read the chart carefully and recognize, using context, where these substitutions have occurred. Plan discussed with: Patient Plan discussed with: Patient NYHA Physical activity limitations: NA Date of Service: May 15, 2025 Billing Provider: HERMILO DUARTE MD Cardiology Common Codes: NOT BILLABLE Cardiology Consultation Codes: 94669-[id number] CONSULT <45MIN HERMILO DUARTE MD 05/15/25 1302: Family History: Hypertension G8 MOTHER Allergies: Coded Allergies: NO KNOWN ALLERGIES (Unverified , 05/13/25) Home Meds Reported Medications Triamcinolone Acetonide (Topic (Triderm) 0.5 % Cre, 0.1 % EX BIDPRN for rash, CRE 05/15/25 Beclomethasone Dipropionate (Qvar Redihaler) 80 Mcg/Act Aer, 80 MCG IN, AER 05/14/25 Ergocalciferol (VITAMIN D2) 400 Unit Tab, 400 UNIT PO, TAB 05/14/25 Clopidogrel Bisulfate (CLOPIDOGREL) 75 Mg Tab, 75 MG PO DAILY for 30 Days, MG 05/14/25 Amlodipine Besylate (Amlodipine Besylate) 5 Mg Tab, 5 MG PO DAILY for 30 Days, MG 05/14/25 Fluoxetine Hcl (Fluoxetine Hcl) 20 Mg Cap, 20 MG PO DAILY for 30 Days, MG 05/14/25 Hydroxychloroquine Sulfate (Hydroxychloroquine Sulfat) 200 Mg Tab, 200 MG PO for 30 Days, MG 05/14/25 Atorvastatin Calcium (ATORVASTATIN CALCIUM) 20 Mg Tab, 20 MG PO DAILY, TAB 05/14/25 Folic Acid (Folic Acid) 1 Mg Tab, 1 MG PO DAILY for 30 Days, MG 05/14/25 Olanzapine (OLANZAPINE) 5 Mg Tab, 5 MG PO DAILY for 30 Days, MG 05/14/25 Citalopram Hydrobromide (Citalopram Hydrobromide) 10 Mg Tab, 5 MG PO DAILY for 30 Days, MG 05/14/25 Gabapentin (Gabapentin) 300 Mg Cap, 300 MG PO for 30 Days, MG 05/14/25 Metoprolol Succinate (Metoprolol Succinate Er) 50 Mg Tab, 50 MG PO DAILY for 30 Days, MG 05/14/25 Plan/Recommendation SVT/ prob AVNRT would not use amio routinely EP consult Plan discussed with: Patient AVILANELLY 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
[2025-05-15] MEDS ORDERED: [UNRECOGNIZED DRUG - CODE] EX (12:07)
[2025-05-15] MEDS: MAGNESIUM OXIDE 400 MG TAB PO SCH (14:51)
[2025-05-15] MEDS: CLINDAMYCIN 600MG IV 50 ML IV SCH (16:41)
--- NOTE | 2025-05-15 17:22 | DVHPN2 ---
Subjective Somewhat better Reviewed: Care Plan, H&P, Labs, Medications, Previous Orders, Radiology Changes from previous H/P or p: No Changes Objective Vitals Vital Signs Date Time Temp Pulse Resp B/P (MAP) Pulse Ox O2 Delivery O2 Flow Rate FiO2 05/15/25 16:50 98.1 81 16 135/70 (91) 96 98.1 05/15/25 12:33 Nasal Cannula 2.0 05/15/25 12:33 28 Intake/Output Intake and Output 05/15/25 07:00 Intake Total 1500 ml Balance 1500 ml Intake Oral 1450 ml IV Total 50 ml # Voids 5 General Appearance: Alert, Oriented X3, Cooperative, No acute distress HEENT: Atraumatic Lungs: Other (Better AIR RNTRY. Still WHEEZES AND CRACKLES B LUNGS) Cardiovascular: Regular rate Abdomen: Normal bowel sounds, Soft Extremities: Other (BLE REDNESS, WARMTH, SCALY SKIN) Medications Current Medications Medications Dose Ordered Sig/Ramirez Route Start Time Stop Time Status Last Admin Dose Admin Clopidogrel Bisulfate 75 mg DAILY PO 05/14/25 10:00 05/15/25 10:04 75 MG Amlodipine Besylate 2.5 mg DAILY PO 05/14/25 10:00 05/15/25 10:05 2.5 MG Atorvastatin Calcium 20 mg HS PO 05/13/25 22:00 05/14/25 22:21 20 MG Olanzapine 5 mg DAILY PO 05/14/25 10:00 05/15/25 10:06 5 MG Albuterol 2.5 mg Q6HPRN PRN NEB 05/13/25 19:00 05/14/25 12:30 2.5 MG Metoprolol Tartrate 50 mg BID PO 05/13/25 22:00 05/15/25 10:08 50 MG Diagnostic Test (Pha) 1 strip ACHS 05/13/25 22:00 05/15/25 16:36 1 STRIP Insulin Human Regular ACHS SC 05/13/25 22:00 05/15/25 06:45 2 UNITS Dextrose 50 ml UD PRN IV 05/13/25 19:00 Ondansetron HCl 4 mg Q4HP PRN IV 05/13/25 19:00 Enoxaparin Sodium 40 mg DAILY SC 05/14/25 10:00 05/15/25 10:09 40 MG Acetaminophen 650 mg Q6HP PRN PO 05/13/25 19:00 Nitroglycerin 0.4 mg Q5MINP PRN SL 05/13/25 19:00 Morphine Sulfate 2 mg Q30M PRN IV 05/13/25 19:00 Levofloxacin/ Dextrose 100 ml @ 100 mls/hr DAILY IV 05/15/25 10:00 05/15/25 10:03 100 MLS/HR Albuterol 2.5 mg Q6HR NEB 05/14/25 18:00 05/15/25 12:34 2.5 MG Albuterol 2.5 mg Q3HPRN PRN NEB 05/14/25 17:15 Ipratropium [place] 0.5 mg Q6HR NEB 05/14/25 18:00 05/15/25 12:34 0.5 MG Methylprednisolone Sodium Succinate 40 mg Q12H IV 05/14/25 17:15 05/15/25 17:18 40 MG Levothyroxine Sodium 75 mcg QAM@0600 PO 05/17/25 06:00 Clindamycin Phosphate 50 ml @ 50 mls/hr Q8HR IV 05/15/25 16:30 05/15/25 16:41 50 MLS/HR Magnesium Oxide 400 mg BID PO 05/15/25 10:00 05/15/25 14:51 400 MG Laboratory Results Laboratory Tests 05/13/25 14:22 05/14/25 05:59 Chemistry Test 05/15/25 11:24 Magnesium Level 1.5 mg/dL (1.6-2.6) L Urinalysis Test 05/13/25 17:45 Urine Color Colorless (Yellow) Urine Clarity Clear (Clear) Urine pH 6.5 (5.0-9.0) Urine Specific [place] 1.009 (1.001-1.035) Urine Protein Negative (Negative) Urine Ketones Negative (Negative) Urine Blood Negative /uL (Negative) Urine Nitrite Negative (Negative) Urine Bilirubin Negative (Negative) Urine Urobilinogen Normal mg/dL (Negative) Urine Leukocyte Esterase Negative /uL (Negative) Urine RBC <1 /hpf (0 - 4) Urine Microscopic WBC 1 /HPF (0-5) Urine Squamous Epithelial Cells Few /hpf (<5) Urine Bacteria None seen /hpf (None Seen) Urine Glucose Normal mg/dL (Normal) Assessment/Plan Assessment/Plan Chest pain and tightness COPD exacerbation with possible pneumonia SVT Diabetes Hypertension Bilateral lower extremity cellulitis and dermatitis Hypomagnesemia Plan: Continue current plan of care. Replace magnesium Plan discussed with: Patient My Orders Orders - LUIGI COFFMAN MD Procedure Category Date Status Time Clindamycin 600mg Iv PHA 05/15/25 In Process (Cleocin Iv) 16:30 Date of Service: May 15, 2025 Billing Provider: LUIGI COFFMAN MD Common Visit Codes: [id number] INP/OBS CARE(HIGH) LUIGI COFFMAN MD May 15, 2025 17:22
[2025-05-15] MEDS: MAGNESIUM SULFATE 1GM/100ML 100 ML IV ONE (17:51)
--- NOTE | 2025-05-15 19:28 | DVHSR ---
APPROVED REPORT EXAM: Two-dimensional and M-mode echocardiogram with Doppler and color Doppler. Blood Pressure: 158/63 mmHg INDICATION SVT RISK FACTORS Height: 5'0", Weight: 130 DIMENSIONS LVDd4.1 (3.8-5.7cm)LA (2D)3.7 (1.9-4.0cm)Aortic Root2.2 (2.0-3.7cm) LVDs2.6 (2.5-4.0cm)LA (MM) (1.9-4.0cm)Aortic Cusp Exc1.4 (1.5-2.0cm) EF (%) 60.0 (55-70%)Rt. Atrium3.5 (1.9-4.0cm)Asc. Aorta cm IVSd1.1 (0.7-1.1cm)RV (D) (1.8-2.4cm) PWd1.1 (0.7-1.1cm) Mitral Valve MitralMitral Stenosis E wave1.19m/sMV Mean GR.mmHg A wave1.04m/sMV Peak GR.mmHg E/A ratio1.12D MVAcm2 DECEL [id number] 1/2 Timems Aortic Valve Aortic ValveAortic Stenosis V11.10m/Sheri Mean GR.3mmHg V21.16m/Sheri Peak GR.5mmHg LVOT Diameter1.6 (1.8-2.4cm)Doppler AVA1.91cm2 AI P 1/2 Kjgn057.90ms Pulmonic Valve V20.83m/s Tricuspid Valve TR Velocity3.02m/s [id number] Other Information Technically limited study due to body habitus, patient sitting up. Conclusion Left ventricle: Mild concentric left ventricular hypertrophy was seen. LVEF was around 65%. There was no gross wall motion abnormality. Left ventricular diastolic function was considered normal. Right ventricle was normal-sized with normal systolic function. Both atria were normal-sized. Aortic valve was trileaflet. There was [id number] aortic insufficiency. There was no aortic s tenosis. There was mild mitral valve prolapse. There was mild mitral regurgitation. There was mild tricuspid regurgitation. There was mild pulmonary valve insufficiency. Right ventricular systolic pressure was assessed at 40 mm Hg. There was no pericardial effusion.
[2025-05-16] VITALS (14 sets, daily range): BP systolic 124–161; BP diastolic 44–72; PULSE 66–80; RESP 16–18; TEMP 97–98; O2SAT 95–99
[2025-05-16] MEDS ORDERED: MAGNESIUM OXIDE 400 MG TAB PO SCH (10:00)
[2025-05-16 10:26] LABS: Free T4 (Free Thyroxine) 1.1 ng/dL (0.89-1.76)
[2025-05-16 10:27] LABS: Free T3 2.03 pg/mL (2.3-4.2)
--- NOTE | 2025-05-16 10:47 | DVHINCON2 ---
Date of service: May 16, 2025 History of Present Illness HPI Patient is a 70-year-old female who was transferred from our office to the hospital for episode of SVT. She has been given adenosine/amiodarone and has converted to sinus rhythm. Home Meds Reported Medications Triamcinolone Acetonide (Topic (Triderm) 0.5 % Cre, 0.1 % EX BIDPRN for rash, CRE 05/15/25 Beclomethasone Dipropionate (Qvar Redihaler) 80 Mcg/Act Aer, 80 MCG IN, AER 05/14/25 Ergocalciferol (VITAMIN D2) 400 Unit Tab, 400 UNIT PO, TAB 05/14/25 Clopidogrel Bisulfate (CLOPIDOGREL) 75 Mg Tab, 75 MG PO DAILY for 30 Days, MG 05/14/25 Amlodipine Besylate (Amlodipine Besylate) 5 Mg Tab, 5 MG PO DAILY for 30 Days, MG 05/14/25 Fluoxetine Hcl (Fluoxetine Hcl) 20 Mg Cap, 20 MG PO DAILY for 30 Days, MG 05/14/25 Hydroxychloroquine Sulfate (Hydroxychloroquine Sulfat) 200 Mg Tab, 200 MG PO for 30 Days, MG 05/14/25 Atorvastatin Calcium (ATORVASTATIN CALCIUM) 20 Mg Tab, 20 MG PO DAILY, TAB 05/14/25 Folic Acid (Folic Acid) 1 Mg Tab, 1 MG PO DAILY for 30 Days, MG 05/14/25 Olanzapine (OLANZAPINE) 5 Mg Tab, 5 MG PO DAILY for 30 Days, MG 05/14/25 Citalopram Hydrobromide (Citalopram Hydrobromide) 10 Mg Tab, 5 MG PO DAILY for 30 Days, MG 05/14/25 Gabapentin (Gabapentin) 300 Mg Cap, 300 MG PO for 30 Days, MG 05/14/25 Metoprolol Succinate (Metoprolol Succinate Er) 50 Mg Tab, 50 MG PO DAILY for 30 Days, MG 05/14/25 Past Medical History Others Past medical history includes COPD on home oxygen, hypertension, diabetes mellitus, hyperlipidemia, depression, insomnia, rheumatoid arthritis, peripheral artery disease, hypothyroidism, status post thyroid surgery and also status post C-sections. She has had peripheral revascularization (stenting) before. Patient Family History: Hypertension G8 MOTHER Alocohol: None Drugs: None Lives with: With family Review of Systems Constitutional: No symptom reported Cardiovascular: Palpitations All Other Systems Fourteen point review of system was performed. Relevant findings as per above and as per HPI. Otherwise negative H&P Exam Vital Signs Vital Signs Date Time Temp Pulse Resp B/P (MAP) Pulse Ox O2 Delivery O2 Flow Rate FiO2 05/16/25 10:14 160/62 05/16/25 10:11 72 05/16/25 09:30 99 Nasal Cannula 2.0 05/16/25 09:30 28 05/16/25 08:38 18 05/16/25 05:00 97.4 97.4 General Appeara: Well developed Head Exam: Normal inspection Eye Exam: bilateral eye PERRL Pulmonary/Respiratory: Lungs clear Cardiovascular/Chest: Regular rate Peripheral Pulses: 2+ carotid (R), 2+ carotid (L), 2+ femoral (R), 2+ femoral (L), 2+ Radial (R), 2+ Radial (L) Abdominal Exam: Normal bowel sounds, Soft Neuro/Mental St: Alert, Oriented Appearance: Appropriate appearance Labs/Xrays Labs Test 05/16/25 05:37 05/15/25 11:24 05/14/25 14:48 05/14/25 05:59 Range/Units POC Glucose 106 70-106 mg/dl Magnesium Level 1.5 L 1.6-2.6 mg/dL D-Dimer, Quantitative 1.78 H 0.0-0.49 mg/L FEU Hemoglobin A1c 5.1 <5.7 % A1C Free Thyroxine (T4) Calculated 1.10 0.89-1.76 ng/dL Free Triiodothyronine (T3) pg/mL 2.03 L 2.3-4.2 pg/mL Sodium Level 139 136-145 mmol/L Potassium Level 5.0 3.5-5.1 mmol/L Chloride Level 101 98-107 mmol/L Carbon Dioxide Level 30 20-31 mmol/L Anion Gap 8 5-15 Blood Urea Nitrogen 9 9-23 mg/dL Creatinine 0.84 0.550-1.02 mg/dL Glomerular Filtration Rate Calc 74 >90 mL/min BUN/Creatinine Ratio 10.7 10.0-20.0 Serum Glucose 71 L 74-106 mg/dL Calcium Level 9.2 8.7-10.4 mg/dL Triglycerides Level 63 < 150 mg/dL Cholesterol Level 127 < 200 mg/dL LDL Cholesterol 57 < 100 mg/dL HDL Cholesterol 57 40-59 mg/dL Thyroid Stimulating Hormone (TSH) 0.52 L 0.55-4.78 uIU/mL Test 05/13/25 17:48 05/13/25 17:45 05/13/25 14:22 Range/Units Troponin I High Sensitivity 17 </=34 ng/L Urine Color Colorless Yellow Urine Clarity Clear Clear Urine pH 6.5 5.0-9.0 Urine Specific [place] 1.009 1.001-1.035 Urine Protein Negative Negative Urine Ketones Negative Negative Urine Blood Negative Negative /uL Urine Nitrite Negative Negative Urine Bilirubin Negative Negative Urine Urobilinogen Normal Negative mg/dL Urine Leukocyte Esterase Negative Negative /uL Urine RBC <1 0 - 4 /hpf Urine Microscopic WBC 1 0-5 /HPF Urine Squamous Epithelial Cells Few <5 /hpf Urine Bacteria None seen None Seen /hpf Urine Glucose Normal Normal mg/dL White Blood Count 7.9 4.4-10.8 10^3/uL Red Blood Count 3.93 L 4.0-5.20 10^6/uL Hemoglobin 11.6 L 12.2-16.2 g/dL Hematocrit 35.1 L 36.0-46.0 % Mean Corpuscular Volume 89.5 80.0-100.0 fL Mean Corpuscular Hemoglobin 29.5 28.0-32.0 pg Mean Corpuscular Hemoglobin Concent 33.0 32.0-36.0 g/dL Red Cell Distribution Width 15.0 H 11.8-14.3 % Platelet Count 193 140-450 10^3/uL Mean Platelet Volume 7.7 6.9-10.8 fL Neutrophils (%) (Auto) 67.3 37.0-80.0 % Lymphocytes (%) (Auto) 18.8 10.0-50.0 % Monocytes (%) (Auto) 10.3 0.0-12.0 % Eosinophils (%) (Auto) 3.2 0.0-7.0 % Basophils (%) (Auto) 0.4 0.0-2.0 % Neutrophils # (Auto) 5.3 1.6-8.6 10 ^3/uL Lymphocytes # (Auto) 1.5 0.4-5.4 10 ^3/uL Monocytes # (Auto) 0.8 0-1.3 10 ^3/uL Eosinophils # (Auto) 0.3 0-0.8 10 ^3/uL Basophils # (Auto) 0 0-0.2 10 ^3/uL Nucleated Red Blood Cells 0.0 % Assessment/Plan Plan Patient is a 70-year-old female who was transferred from our office to the hospital for episode of SVT. She has been given adenosine/amiodarone and has converted to sinus rhythm. Not in acute distress. Sitting in bed. No JVD. Mucosa is pink and wet. No carotid bruit. Not using accessory muscles of breathing. Lungs are clear to auscultation. Cardiac: Regular, no thrill/gallop. Abdomen is soft. There is no gross mass/hepatomegaly. Bowel sound is positive. There is no peripheral edema. Dorsalis pedis is 2+ bilateral. Past medical history includes COPD on home oxygen, hypertension, diabetes mellitus, hyperlipidemia, depression, insomnia, rheumatoid arthritis, peripheral artery disease, hypothyroidism, status post thyroid surgery and also status post C-sections. She has had peripheral revascularization (stenting) before. Nuclear stress test of March 2025 (performed in the office) revealed no ischemia and no scar. Ejection fraction was 73%. Echocardiogram of December 2024 (performed in the office) revealed preserved left ventricular systolic function, right ventricular systolic pressure was somewhat elevated and it questioned some valvular disease. WBC: 7.9 Hemoglobin: 11.6 D-dimer: 1.78 Creatinine: 0.89 - 0.84 Potassium: 4.1 - 5.0 Troponin (high sensitive): 5 - 9 - 17 TSH: 0.52 Magnesium: 1.5 Chest x-ray revealed: The cardiac silhouette is enlarged. The lungs demonstrate bilateral patchy airspace opacities, which are most pronounced in the left lower lobe. The pulmonary vasculature is prominent. Small left pleural effusion. There is no pneumothorax. Aortic atherosclerotic disease. IMPRESSION: As above CT angio of the lungs revealed: IMPRESSION: No pulmonary embolism or other acute abnormality. Mild airways disease. EKG on arrival revealed SVT. Tele revealed sinus rhythm Echocardiogram reported: Left ventricle: Mild concentric left ventricular hypertrophy was seen. LVEF was around 65%. There was no gross wall motion abnormality. Left ventricular diastolic function was considered normal. Right ventricle was normal-sized with normal systolic function. Both atria were normal-sized. Aortic valve was trileaflet. There was [id number] aortic insufficiency. There was no aortic stenosis. There was mild mitral valve prolapse. There was mild mitral regurgitation. There was mild tricuspid regurgitation. There was mild pulmonary valve insufficiency. Right ventricular systolic pressure was assessed at 40 mm Hg. There was no pericardial effusion. Patient is a 70-year-old female who presented with SVT to the office and was transferred to the hospital. Later she converted to sinus rhythm. Past medical history includes hypertension/hyperlipidemia/rheumatoid arthritis/peripheral artery disease. SVT Hypomagnesemia Cardiac suggestion for management: Managed on telemetry Follow-up electrolytes and kidney function tests and correct abnormalities Continue metoprolol Magnesium supplementation Further evaluation and management depends on the above and clinical course Thank you for consultation A total of 75 minutes was spent reviewing the patient record, examining the patient, making a diagnostic and therapeutic plan, discussing this plan with medical personnel, following up on diagnostic studies and following the patient for clinical stability excluding any and all procedures. At least 50% of this time was spent in direct, [id number] contact. Thank you for allowing me to participate in this patient's care. Further recommendations will depend on patient's clinical course. Please do not hesitate to contact me if you have any questions or concerns. This medical document was created using electronic medical record system with [employer] computerized dictation system. Although this document has been carefully reviewed, there may still be some phonetic and typographical errors. These areas are purely typographical due to the imperfection of the software programs, and do not reflect any compromise in the patient's medical care. Plan discussed with: Patient, Other (nurse) KHADRA LEMUS MD May 16, 2025 10:47
--- NOTE | 2025-05-16 11:33 | DVHPN2 ---
Subjective The patient seen and examined at bedside. no complains today. Reviewed: Care Plan, H&P, Labs, Medications, Previous Orders, Radiology Changes from previous H/P or p: No Changes Objective Vitals Vital Signs Date Time Temp Pulse Resp B/P (MAP) Pulse Ox O2 Delivery O2 Flow Rate FiO2 05/16/25 10:14 160/62 05/16/25 10:11 72 05/16/25 09:30 99 Nasal Cannula 2.0 05/16/25 09:30 28 05/16/25 08:38 18 05/16/25 05:00 97.4 97.4 Intake/Output Intake and Output 05/16/25 07:00 Intake Total 2355 ml Balance 2355 ml Intake Oral 2005 ml IV Total 350 ml # Voids 4 # Bowel Movements 1 General Appearance: Alert, Oriented X3, Cooperative, No acute distress HEENT: Atraumatic, PERRLA, EOMI, Mucous membr. moist/pink Lungs: Other (Better AIR RNTRY. Still WHEEZES AND CRACKLES B LUNGS) Cardiovascular: Regular rate, No murmurs, Gallops, Rubs Abdomen: Normal bowel sounds, Soft Extremities: Other (BLE REDNESS, WARMTH, SCALY SKIN) Medications Current Medications Medications Dose Ordered Sig/Ramirez Route Start Time Stop Time Status Last Admin Dose Admin Clopidogrel Bisulfate 75 mg DAILY PO 05/14/25 10:00 05/16/25 10:13 75 MG Amlodipine Besylate 2.5 mg DAILY PO 05/14/25 10:00 05/16/25 10:14 2.5 MG Atorvastatin Calcium 20 mg HS PO 05/13/25 22:00 05/15/25 22:25 20 MG Olanzapine 5 mg DAILY PO 05/14/25 10:00 05/16/25 10:12 5 MG Albuterol 2.5 mg Q6HPRN PRN NEB 05/13/25 19:00 05/14/25 12:30 2.5 MG Metoprolol Tartrate 50 mg BID PO 05/13/25 22:00 05/16/25 10:11 50 MG Diagnostic Test (Pha) 1 strip ACHS 05/13/25 22:00 05/16/25 06:02 1 STRIP Insulin Human Regular ACHS SC 05/13/25 22:00 05/15/25 22:44 3 UNITS Dextrose 50 ml UD PRN IV 05/13/25 19:00 Ondansetron HCl 4 mg Q4HP PRN IV 05/13/25 19:00 Enoxaparin Sodium 40 mg DAILY SC 05/14/25 10:00 05/16/25 10:15 40 MG Acetaminophen 650 mg Q6HP PRN PO 05/13/25 19:00 Nitroglycerin 0.4 mg Q5MINP PRN SL 05/13/25 19:00 Morphine Sulfate 2 mg Q30M PRN IV 05/13/25 19:00 Levofloxacin/ Dextrose 100 ml @ 100 mls/hr DAILY IV 05/15/25 10:00 05/16/25 10:12 100 MLS/HR Albuterol 2.5 mg Q6HR NEB 05/14/25 18:00 05/16/25 08:32 2.5 MG Albuterol 2.5 mg Q3HPRN PRN NEB 05/14/25 17:15 Hold Ipratropium [place] 0.5 mg Q6HR NEB 05/14/25 18:00 05/16/25 08:32 0.5 MG Methylprednisolone Sodium Succinate 40 mg Q12H IV 05/14/25 17:15 05/16/25 05:42 40 MG Levothyroxine Sodium 75 mcg QAM@0600 PO 05/17/25 06:00 Clindamycin Phosphate 50 ml @ 50 mls/hr Q8HR IV 05/15/25 16:30 05/16/25 05:43 50 MLS/HR Magnesium Oxide 400 mg BID PO 05/15/25 10:00 05/16/25 10:13 400 MG Laboratory Results Laboratory Tests 05/13/25 14:22 05/14/25 05:59 Urinalysis Test 05/13/25 17:45 Urine Color Colorless (Yellow) Urine Clarity Clear (Clear) Urine pH 6.5 (5.0-9.0) Urine Specific [place] 1.009 (1.001-1.035) Urine Protein Negative (Negative) Urine Ketones Negative (Negative) Urine Blood Negative /uL (Negative) Urine Nitrite Negative (Negative) Urine Bilirubin Negative (Negative) Urine Urobilinogen Normal mg/dL (Negative) Urine Leukocyte Esterase Negative /uL (Negative) Urine RBC <1 /hpf (0 - 4) Urine Microscopic WBC 1 /HPF (0-5) Urine Squamous Epithelial Cells Few /hpf (<5) Urine Bacteria None seen /hpf (None Seen) Urine Glucose Normal mg/dL (Normal) Labs and/or images reviewed: Labs reviewed by me Assessment/Plan Assessment/Plan Chest pain and tightness COPD exacerbation with possible pneumonia SVT Diabetes Hypertension Bilateral lower extremity cellulitis and dermatitis Hypomagnesemia Continue current management. Continue SSI Continue HTN meds Continue IV antibiotic Appreciate Dr Marie's input. Replace mag as need. Will check labs in am. Plan discussed with: Patient Date of Service: May 16, 2025 Billing Provider: ABRAM SANDRA MD Common Visit Codes: [id number] INP/OBS CARE(HIGH) ABRAM SANDRA MD May 16, 2025 11:33
--- NOTE | 2025-05-16 11:34 | DVHPN2 ---
Reviewed: Care Plan, H&P, Labs, Medications, Previous Orders, Radiology Objective Vitals Vital Signs Date Time Temp Pulse Resp B/P (MAP) Pulse Ox O2 Delivery O2 Flow Rate FiO2 05/16/25 10:14 160/62 05/16/25 10:11 72 05/16/25 09:30 99 Nasal Cannula 2.0 05/16/25 09:30 28 05/16/25 08:38 18 05/16/25 05:00 97.4 97.4 Intake/Output Intake and Output 05/16/25 07:00 Intake Total 2355 ml Balance 2355 ml Intake Oral 2005 ml IV Total 350 ml # Voids 4 # Bowel Movements 1 General Appearance: Alert, Oriented X3, Cooperative, No acute distress HEENT: Atraumatic Lungs: Other (Better AIR RNTRY. Still WHEEZES AND CRACKLES B LUNGS) Cardiovascular: Regular rate Abdomen: Normal bowel sounds, Soft Extremities: Other (BLE REDNESS, WARMTH, SCALY SKIN) Medications Current Medications Medications Dose Ordered Sig/Ramirez Route Start Time Stop Time Status Last Admin Dose Admin Clopidogrel Bisulfate 75 mg DAILY PO 05/14/25 10:00 05/16/25 10:13 75 MG Amlodipine Besylate 2.5 mg DAILY PO 05/14/25 10:00 05/16/25 10:14 2.5 MG Atorvastatin Calcium 20 mg HS PO 05/13/25 22:00 05/15/25 22:25 20 MG Olanzapine 5 mg DAILY PO 05/14/25 10:00 05/16/25 10:12 5 MG Albuterol 2.5 mg Q6HPRN PRN NEB 05/13/25 19:00 05/14/25 12:30 2.5 MG Metoprolol Tartrate 50 mg BID PO 05/13/25 22:00 05/16/25 10:11 50 MG Diagnostic Test (Pha) 1 strip ACHS 05/13/25 22:00 05/16/25 06:02 1 STRIP Insulin Human Regular ACHS SC 05/13/25 22:00 05/15/25 22:44 3 UNITS Dextrose 50 ml UD PRN IV 05/13/25 19:00 Ondansetron HCl 4 mg Q4HP PRN IV 05/13/25 19:00 Enoxaparin Sodium 40 mg DAILY SC 05/14/25 10:00 05/16/25 10:15 40 MG Acetaminophen 650 mg Q6HP PRN PO 05/13/25 19:00 Nitroglycerin 0.4 mg Q5MINP PRN SL 05/13/25 19:00 Morphine Sulfate 2 mg Q30M PRN IV 05/13/25 19:00 Levofloxacin/ Dextrose 100 ml @ 100 mls/hr DAILY IV 05/15/25 10:00 05/16/25 10:12 100 MLS/HR Albuterol 2.5 mg Q6HR NEB 05/14/25 18:00 05/16/25 08:32 2.5 MG Albuterol 2.5 mg Q3HPRN PRN NEB 05/14/25 17:15 Hold Ipratropium [place] 0.5 mg Q6HR NEB 05/14/25 18:00 05/16/25 08:32 0.5 MG Methylprednisolone Sodium Succinate 40 mg Q12H IV 05/14/25 17:15 05/16/25 05:42 40 MG Levothyroxine Sodium 75 mcg QAM@0600 PO 05/17/25 06:00 Clindamycin Phosphate 50 ml @ 50 mls/hr Q8HR IV 05/15/25 16:30 05/16/25 05:43 50 MLS/HR Magnesium Oxide 400 mg BID PO 05/15/25 10:00 05/16/25 10:13 400 MG Laboratory Results Laboratory Tests 05/13/25 14:22 05/14/25 05:59 Urinalysis Test 05/13/25 17:45 Urine Color Colorless (Yellow) Urine Clarity Clear (Clear) Urine pH 6.5 (5.0-9.0) Urine Specific [place] 1.009 (1.001-1.035) Urine Protein Negative (Negative) Urine Ketones Negative (Negative) Urine Blood Negative /uL (Negative) Urine Nitrite Negative (Negative) Urine Bilirubin Negative (Negative) Urine Urobilinogen Normal mg/dL (Negative) Urine Leukocyte Esterase Negative /uL (Negative) Urine RBC <1 /hpf (0 - 4) Urine Microscopic WBC 1 /HPF (0-5) Urine Squamous Epithelial Cells Few /hpf (<5) Urine Bacteria None seen /hpf (None Seen) Urine Glucose Normal mg/dL (Normal) ABRAM SANDRA MD May 16, 2025 11:34
[2025-05-16] MEDS ORDERED: MORPHINE SULFATE 4 MG/ML SYR/VIAL IV PRN (16:15)
[2025-05-17] VITALS (12 sets, daily range): BP systolic 145–165; BP diastolic 67–78; PULSE 63–74; RESP 12–18; TEMP 97–98.1; O2SAT 97–100
[2025-05-17] MEDS: LEVOTHYROXINE SODIUM 25 MCG TAB PO SCH (05:14)
--- NOTE | 2025-05-17 07:59 | DVHPN2 ---
Progress Note - Dictate Date Seen: May 17, 2025 Medical Necessity Reason Pt with a Central, PICC or Fol: No vital signs Vital Sign Date Time Temp Pulse Resp B/P (MAP) Pulse Ox O2 Delivery O2 Flow Rate FiO2 05/17/25 06:55 65 14 100 05/17/25 06:48 Nasal Cannula* 2 05/17/25 05:00 98.1 150/72 (98) 98.1 Total Intake and Output 05/16/25 05/16/25 05/17/25 15:00 23:00 07:00 Intake Total 100 ml 1000 ml 500 ml Balance 100 ml 1000 ml 500 ml medications Current Medications Medications Dose Ordered Sig/Ramirez Route Start Time Stop Time Status Last Admin Dose Admin Clopidogrel Bisulfate 75 mg DAILY PO 05/14/25 10:00 05/16/25 10:13 75 MG Amlodipine Besylate 2.5 mg DAILY PO 05/14/25 10:00 05/16/25 10:14 2.5 MG Atorvastatin Calcium 20 mg HS PO 05/13/25 22:00 05/16/25 21:57 20 MG Olanzapine 5 mg DAILY PO 05/14/25 10:00 05/16/25 10:12 5 MG Metoprolol Tartrate 50 mg BID PO 05/13/25 22:00 05/16/25 21:57 50 MG Ondansetron HCl 4 mg Q4HP PRN IV 05/13/25 19:00 Enoxaparin Sodium 40 mg DAILY SC 05/14/25 10:00 05/16/25 10:15 40 MG Acetaminophen 650 mg Q6HP PRN PO 05/13/25 19:00 Nitroglycerin 0.4 mg Q5MINP PRN SL 05/13/25 19:00 Levofloxacin/ Dextrose 100 ml @ 100 mls/hr DAILY IV 05/15/25 10:00 05/16/25 10:12 100 MLS/HR Albuterol 2.5 mg Q6HR NEB 05/14/25 18:00 05/17/25 06:46 2.5 MG Albuterol 2.5 mg Q3HPRN PRN NEB 05/14/25 17:15 Hold Ipratropium [place] 0.5 mg Q6HR NEB 05/14/25 18:00 05/17/25 06:46 0.5 MG Methylprednisolone Sodium Succinate 40 mg Q12H IV 05/14/25 17:15 05/17/25 05:13 40 MG Levothyroxine Sodium 75 mcg QAM@0600 PO 05/17/25 06:00 05/17/25 05:14 75 MCG Clindamycin Phosphate 50 ml @ 50 mls/hr Q8HR IV 05/15/25 16:30 05/17/25 05:13 50 MLS/HR Magnesium Oxide 400 mg BID PO 05/15/25 10:00 05/16/25 21:57 400 MG Morphine Sulfate 2 mg Q30M PRN IV 05/16/25 16:15 laboratory and microbiology Laboratory Tests 05/14/25 05:59 05/13/25 14:22 Test 05/14/25 05:59 Range/Units Serum Glucose 71 L 74-106 mg/dL Assessment/Plan Patient is a 70-year-old female who was transferred from our office to the hospital for episode of SVT. She has been given adenosine/amiodarone and has converted to sinus rhythm. Not in acute distress. Sitting in bed. No JVD. Mucosa is pink and wet. No carotid bruit. Not using accessory muscles of breathing. Lungs are clear to auscultation. Cardiac: Regular, no thrill/gallop. Abdomen is soft. There is no gross mass/hepatomegaly. Bowel sound is positive. There is no peripheral edema. Dorsalis pedis is 2+ bilateral. Past medical history includes COPD on home oxygen, hypertension, diabetes mellitus, hyperlipidemia, depression, insomnia, rheumatoid arthritis, peripheral artery disease, hypothyroidism, status post thyroid surgery and also status post C-sections. She has had peripheral revascularization (stenting) before. Nuclear stress test of March 2025 (performed in the office) revealed no ischemia and no scar. Ejection fraction was 73%. Echocardiogram of December 2024 (performed in the office) revealed preserved left ventricular systolic function, right ventricular systolic pressure was somewhat elevated and it questioned some valvular disease. WBC: 7.9 Hemoglobin: 11.6 D-dimer: 1.78 Creatinine: 0.89 - 0.84 Potassium: 4.1 - 5.0 Troponin (high sensitive): 5 - 9 - 17 TSH: 0.52 Magnesium: 1.5 Chest x-ray revealed: The cardiac silhouette is enlarged. The lungs demonstrate bilateral patchy airspace opacities, which are most pronounced in the left lower lobe. The pulmonary vasculature is prominent. Small left pleural effusion. There is no pneumothorax. Aortic atherosclerotic disease. IMPRESSION: As above CT angio of the lungs revealed: IMPRESSION: No pulmonary embolism or other acute abnormality. Mild airways disease. EKG on arrival revealed SVT. Tele revealed sinus rhythm Echocardiogram reported: Left ventricle: Mild concentric left ventricular hypertrophy was seen. LVEF was around 65%. There was no gross wall motion abnormality. Left ventricular diastolic function was considered normal. Right ventricle was normal-sized with normal systolic function. Both atria were normal-sized. Aortic valve was trileaflet. There was [id number] aortic insufficiency. There was no aortic stenosis. There was mild mitral valve prolapse. There was mild mitral regurgitation. There was mild tricuspid regurgitation. There was mild pulmonary valve insufficiency. Right ventricular systolic pressure was assessed at 40 mm Hg. There was no pericardial effusion. Patient is a 70-year-old female who presented with SVT to the office and was transferred to the hospital. Later she converted to sinus rhythm. Past medical history includes hypertension/hyperlipidemia/rheumatoid arthritis/peripheral artery disease. SVT Hypomagnesemia Cardiac suggestion for management: Managed on telemetry Follow-up electrolytes and kidney function tests and correct abnormalities Continue metoprolol Magnesium supplementation Cardiac hanley, can be followed as outpatient Further evaluation and management depends on the above and clinical course A total of 55 minutes was spent reviewing the patient record, examining the patient, making a diagnostic and therapeutic plan, discussing this plan with medical personnel, following up on diagnostic studies and following the patient for clinical stability excluding any and all procedures. At least 50% of this time was spent in direct, [id number] contact. Thank you for allowing me to participate in this patient's care. Further recommendations will depend on patient's clinical course. Please do not hesitate to contact me if you have any questions or concerns. This medical document was created using electronic medical record system with [employer] computerized dictation system. Although this document has been carefully reviewed, there may still be some phonetic and typographical errors. These areas are purely typographical due to the imperfection of the software programs, and do not reflect any compromise in the patient's medical care. Dietary Evaluation Review Comments: 1) Initiate MVI @ 1 tb qd 2) Add cardiac restriction to 60g CCHO diet 3) Encourage optimal PO intake 4) Follow-up with cardiology 5) Continue to monitor I&O, labs, and skin integrity Expected Outcomes/Goals: 1) appetite and labs to improve 2) GI symptoms to resolve 3) f/u in 3-5 days Plan discussed with: Other (nurse) KHADRA LEMUS MD May 17, 2025 07:59
[2025-05-17 09:52] LABS: Anion Gap 5 (5-15); Potassium 4.8 mmol/L (3.5-5.1)
[2025-05-17 09:53] LABS: Calcium 9.2 mg/dL (8.7-10.4)
[2025-05-17 09:56] LABS: Carbon Dioxide 33 mmol/L (20-31); Chloride 91 mmol/L (98-107); Sodium 129 mmol/L (136-145)
[2025-05-17 09:58] LABS: BUN/Creatinine Ratio 19.0 (10.0-20.0); Blood Urea Nitrogen 19 mg/dL (9-23); Glucose 125 mg/dL (74-106); Magnesium 1.9 mg/dL (1.6-2.6)
[2025-05-17 10:02] LABS: Hematocrit 34.5 % (36.0-46.0); Hemoglobin 11.7 g/dL (12.2-16.2); Mean Corpuscular Hemoglobin 29.3 pg (28.0-32.0); Mean Corpuscular Volume 86.7 fL (80.0-100.0); Nucleated Red Blood Cells % 0.0 %
--- NOTE | 2025-05-17 11:20 | DVHDS2 ---
Discharge Summary Date of Admission May 13, 2025 at 18:57 Date of Discharge: May 17, 2025 Admitting Diagnosis Chest pain and tightness COPD exacerbation with possible pneumonia SVT Diabetes Hypertension Bilateral lower extremity cellulitis and dermatitis Hypomagnesemia Labs/Diagnostic Data: Laboratory Results Test 05/17/25 08:55 05/16/25 11:51 05/14/25 14:48 05/14/25 05:59 White Blood Count 7.4 10^3/uL (4.4-10.8) Red Blood Count 3.98 10^6/uL (4.0-5.20) Hemoglobin 11.7 g/dL (12.2-16.2) Hematocrit 34.5 % (36.0-46.0) Mean Corpuscular Volume 86.7 fL (80.0-100.0) Mean Corpuscular Hemoglobin 29.3 pg (28.0-32.0) Mean Corpuscular Hemoglobin Concent 33.8 g/dL (32.0-36.0) Red Cell Distribution Width 14.7 % (11.8-14.3) Platelet Count 230 10^3/uL (140-450) Mean Platelet Volume 7.6 fL (6.9-10.8) Neutrophils (%) (Auto) 88.7 % (37.0-80.0) Lymphocytes (%) (Auto) 6.8 % (10.0-50.0) Monocytes (%) (Auto) 4.1 % (0.0-12.0) Eosinophils (%) (Auto) 0.3 % (0.0-7.0) Basophils (%) (Auto) 0.1 % (0.0-2.0) Neutrophils # (Auto) 6.6 10 ^3/uL (1.6-8.6) Lymphocytes # (Auto) 0.5 10 ^3/uL (0.4-5.4) Monocytes # (Auto) 0.3 10 ^3/uL (0-1.3) Eosinophils # (Auto) 0 10 ^3/uL (0-0.8) Basophils # (Auto) 0 10 ^3/uL (0-0.2) Nucleated Red Blood Cells 0.0 % Sodium Level 129 mmol/L (136-145) Potassium Level 4.8 mmol/L (3.5-5.1) Chloride Level 91 mmol/L (98-107) Carbon Dioxide Level 33 mmol/L (20-31) Anion Gap 5 (5-15) Blood Urea Nitrogen 19 mg/dL (9-23) Creatinine 1.00 mg/dL (0.550-1.02) Glomerular Filtration Rate Calc 60 mL/min (>90) BUN/Creatinine Ratio 19.0 (10.0-20.0) Serum Glucose 125 mg/dL (74-106) Calcium Level 9.2 mg/dL (8.7-10.4) Phosphorus Level 2.8 mg/dL (2.4-5.1) Magnesium Level 1.9 mg/dL (1.6-2.6) POC Glucose 114 mg/dl (70-106) D-Dimer, Quantitative 1.78 mg/L FEU (0.0-0.49) Hemoglobin A1c 5.1 % A1C (<5.7) Free Thyroxine (T4) Calculated 1.10 ng/dL (0.89-1.76) Free Triiodothyronine (T3) pg/mL 2.03 pg/mL (2.3-4.2) Triglycerides Level 63 mg/dL (< 150) Cholesterol Level 127 mg/dL (< 200) LDL Cholesterol 57 mg/dL (< 100) HDL Cholesterol 57 mg/dL (40-59) Thyroid Stimulating Hormone (TSH) 0.52 uIU/mL (0.55-4.78) Test 05/13/25 17:48 05/13/25 17:45 Troponin I High Sensitivity 17 ng/L (</=34) Urine Color Colorless (Yellow) Urine Clarity Clear (Clear) Urine pH 6.5 (5.0-9.0) Urine Specific Circle 1.009 (1.001-1.035) Urine Protein Negative (Negative) Urine Ketones Negative (Negative) Urine Blood Negative /uL (Negative) Urine Nitrite Negative (Negative) Urine Bilirubin Negative (Negative) Urine Urobilinogen Normal mg/dL (Negative) Urine Leukocyte Esterase Negative /uL (Negative) Urine RBC <1 /hpf (0 - 4) Urine Microscopic WBC 1 /HPF (0-5) Urine Squamous Epithelial Cells Few /hpf (<5) Urine Bacteria None seen /hpf (None Seen) Urine Glucose Normal mg/dL (Normal) Other Laboratory Tests 05/17/25 08:55 Brief Hx & Hospital Course: This is a 70 years old female come in because of chest pain. The patient apparently went to her primary care doctor's office and started having chest tightness. An EKG was performed and showed SVT. EMS was called. In route the patient was given adenosine and subsequently started on amiodarone on arrival to emergency department. Patient does have mild shortness for breath, denied any dizziness or acute problem. The patient's rhythm converted after adenosine and amiodarone . The patient was admitted. Echo was done. It showed Left ventricle: Mild concentric left ventricular hypertrophy was seen. LVEF was around 65%. There was no gross wall motion abnormality. Left ventricular diastolic function was considered normal. Right ventricle was normal-sized with normal systolic function. Both atria were normal-sized. Aortic valve was trileaflet. There was [id number] aortic insufficiency. There was no aortic stenosis. There was mild mitral valve prolapse. There was mild mitral regurgitation. There was mild tricuspid regurgitation. There was mild pulmonary valve insufficiency. Right ventricular systolic pressure was assessed at 40 mm Hg. There was no pericardial effusion. CT scan abdomen pelvis with contrast showed no acute pulmonary embolism. Cardiology see the patient and recommend continuing metoprolol. Today the patient rhythm is stable. No chest tightness. I am going to discharge her home. Advised her to follow up with primary care physician 1-2 weeks. Follow up with machine chain maker per schedule. Activity as tolerated. Diet per home diet. Recommend low-salt low-cholesterol diet. Physical exam: HEENT: Normocephalic atraumatic pupils equal react to light and accommodation. Extraocular muscles intact, conjunctiva pink, oropharynx moist, no thrush, no exudate. Lymphatic: No lymphadenopathy Cardiovascular exam: S1, S2 was heard. No murmurs, rubs, gallops Lung: Clear on auscultation bilaterally, no wheeze, rale, rhonchi. GI: Abdominal soft, nondistended, nontenderness, positive bowel sounds. Extremity: No crepitus, cyanosis, edema. Pedal pulses present bilateral. Full range of motion. Skin: Normal turgor, no rash. Psych: Alert, oriented x3. Neurology: No focal deficits, cranial nerve II to XII grossly intact. This medical document was created using an electronic medical record system with [employer] direct computerized dictation system. Although this document has been carefully reviewed, there may still be some phonetic and typographical errors. These areas are purely typographical due to imperfections of the software programs, and do not reflect any compromise in the patient's medical care. Condition at Discharge: Stable Final Diagnosis/Problems List Chest pain and tightness COPD exacerbation with possible pneumonia SVT Diabetes Hypertension Bilateral lower extremity cellulitis and dermatitis Hypomagnesemia Discharge Disposition: Home Discharge Instruct/Medications Scheduled Amlodipine Besylate (Amlodipine Besylate), 5 MG PO DAILY, (Reported) Atorvastatin Calcium (Atorvastatin Calcium), 20 MG PO DAILY, (Reported) Citalopram Hydrobromide (Citalopram Hydrobromide), 5 MG PO DAILY, (Reported) Clopidogrel Bisulfate (Clopidogrel), 75 MG PO DAILY, (Reported) Fluoxetine Hcl (Fluoxetine Hcl), 20 MG PO DAILY, (Reported) Folic Acid (Folic Acid), 1 MG PO DAILY, (Reported) Metoprolol Succinate (Metoprolol Succinate Er), 50 MG PO DAILY, (Reported) Olanzapine (Olanzapine), 5 MG PO DAILY, (Reported) Triamcinolone Acetonide (Topic (Triderm), 0.1 % EX BIDPRN, (Reported) Miscellaneous Medications Beclomethasone Dipropionate (Qvar Redihaler), 80 MCG IN, (Reported) Ergocalciferol (Vitamin D2), 400 UNIT PO, (Reported) Gabapentin (Gabapentin), 300 MG PO, (Reported) Hydroxychloroquine Sulfate (Hydroxychloroquine Sulfat), 200 MG PO, (Reported) Discharge Statement: "Patient was advised to return to the ER or call 911 if any headaches, dizziness, shortness of breath, chest pain, abdominal pain, bleeding, fevers, or worsening of medical condition. Patient was counseled about treatment plan, medications, possible side effects, patientverbalized understanding. All questions were answered to the best of my ability. This discharge took greater then 30 minutes in planning, reviewing documentation, counseling the patient, and discussing with other team members." ASSESSMENT ASSESSMENT Assessment Date of Service: May 17, 2025 Billing Provider: ABRAM SANDRA MD Common Visit Codes: 43610-ESZ/OBS DISCH DAY >30min ABRAM SANDRA MD May 17, 2025 11:20
[2025-05-17 12:20] LABS: Anion Gap 7 (5-15); Carbon Dioxide 31 mmol/L (20-31)
[2025-05-17 12:21] LABS: Calcium 9.4 mg/dL (8.7-10.4); Chloride 90 mmol/L (98-107); Potassium 5.3 mmol/L (3.5-5.1); Sodium 128 mmol/L (136-145)
[2025-05-17 12:25] LABS: BUN/Creatinine Ratio 20.7 (10.0-20.0); Blood Urea Nitrogen 18 mg/dL (9-23)
[2025-05-17 12:26] LABS: Glucose 110 mg/dL (74-106)
== END 2025-05-17 13:48 | disposition home or self-care (01) | DRG 308 ==
LOC: ER 14:01 → EDBD 14:01 → OVERFLOW 18:57 → TELE-WESTW 23:17
PROVIDERS: ADMIT Internal Medicine; ATTEND Internal Medicine
DX: I47.10 Supraventricular tachycardia, unspecified (principal); J15.69 Pneumonia due to other Gram-negative bacteria; J15.9 Unspecified bacterial pneumonia; J44.1 Chronic obstructive pulmonary disease with (acute) exacerbation; L03.115 Cellulitis of right lower limb; L03.116 Cellulitis of left lower limb; J44.0 Chronic obstructive pulmonary disease with (acute) lower respiratory infection; I10 Essential (primary) hypertension; E83.42 Hypomagnesemia; E78.5 Hyperlipidemia, unspecified; L30.8 Other specified dermatitis; I37.1 Nonrheumatic pulmonary valve insufficiency; I08.0 Rheumatic disorders of both mitral and aortic valves; E11.51 Type 2 diabetes mellitus with diabetic peripheral angiopathy without gangrene; M06.9 Rheumatoid arthritis, unspecified; E03.9 Hypothyroidism, unspecified; Z82.49 Family history of ischemic heart disease and other diseases of the circulatory system; Z79.02 Long term (current) use of antithrombotics/antiplatelets; Z99.81 Dependence on supplemental oxygen; Z79.899 Other long term (current) drug therapy
CPT/HCPCS: 36415; 71045; 71275; 80048; 80061; 81001; 82962; 83036; 83735; 84100; 84439; 84443; 84481; 84484; 85025; 85379; 87070; 87205; 93306; 94640; 96365; 96366; 99291; 99292; G0378; J1815; J1956; J3490